=== PATIENT | female | born 1980 | race African-American/Black ===

== ENCOUNTER 2016-09-01 18:58 | Inpatient (IN) | payer OTHER ==
[~2016-09-01] VITALS: Ht 157.5 cm; Wt 61.7 kg
--- NOTE | ~2016-09-01 | HC ---
[facility] [place] [address] CONSULTATION Name: MARIE AGGARWAL Room #: 306-P [facility] IN M.R.#: [id number] Admission: 09/02/16 Attend Phys: Ryan Epperson MD Discharge: Date of : 82 Report #: [id number] THIS REPORT FOR: //name// CC: VÍCTOR physician/PCP Ryan Epperson INFECTIOUS DISEASES CONSULTATION REASON FOR CONSULTATION: I was asked to evaluate concerning sickle cell crisis and fever. HISTORY OF PRESENT ILLNESS: The patient is a 36-year-old sickle cell anemia who was hospitalized 2 weeks ago at [facility] with crisis. Was at home doing reasonably well up until the last several days, when she started having increased pain along with fever, pharyngitis symptoms and tender adenopathy in the left neck. No significant travel. No new sexual partners. She has two children but they do not live with her. She is not working. She has had anorexia. No nausea, vomiting or diarrhea. No dysuria or frequency. No cough or sputum production. Hospitalized and placed on ceftriaxone. She is on b.i.d. acyclovir longstanding, also takes Hydrea for her sickle cell. She states 3-4 flares a year. PAST MEDICAL HISTORY: Asthma, genital herpes, cholecystectomy, 2 C-sections. FAMILY HISTORY: Noncontributory. SOCIAL HISTORY: She is a smoker of cigarettes. No alcohol use. Does use marijuana, cocaine. No IV drug use. Denies HIV risks or other sexual transmitted diseases. No tuberculosis history. REVIEW OF SYSTEMS: Negative, has been described above. PHYSICAL EXAMINATION: GENERAL: She was currently afebrile, hemodynamically stable, had a significant amount of pain and was holding her left neck. She does have a Port-A-Cath in place that was unremarkable. SKIN: Unremarkable. HEENT: Eyes: Unremarkable. Mouth: Tonsils were 2+ swollen with exudates. NECK: Supple. She had tender adenopathy in the left posterior cervical chain. No axillary nodes. LUNGS: Clear. HEART: Regular. ABDOMEN: Soft and nontender. LABORATORY STUDIES: Chest x-ray was clear. CT of the head showed poor patchy area of gliosis. Lactate 1.1. Group A strep from throat was positive. [address] [address] CONSULTATION Name: MARIE AGGARWAL Room #: 306-P ADM IN M.R.#: [id number] Admission: 09/02/16 Attend Phys: Ryan Epperson MD Discharge: Date of : 82 Report #: [id number] Hemoglobin 8.4, white cell count was 33,000, platelet count 405,000. Sodium 135, potassium 4.2, bicarbonate 24, creatinine 0.6. Liver function test normal. Urinalysis negative. IMPRESSION: Group A strep pharyngitis and tonsillitis with flare per her sickle cell disease. PLAN: Recommend continuing penicillin G. Fluid resuscitation, pain medications, salt water gargle, throat culture for sensitivity testing, check EBV titer as well. <ELECTRONICALLY SIGNED> By: Bib Carlson MD 09/05/16 0742 1030 1348 Bib Carlson MD /nt
--- NOTE | ~2016-09-01 | D ---
[facility] [place] [address] DISCHARGE SUMMARY Name: JASENMARIE Giovani Room #: 306-P ADM IN M.R.#: [id number] Admission: 09/02/16 Attend Phys: Katelynn Lester MD Discharge: Date of : 82 Report #: [id number] THIS REPORT FOR: //name// CC: VÍCTOR physician/PCP Katelynn Lester DATE OF SERVICE: 09/09/2016 HISTORY OF PRESENT ILLNESS: The patient is a 36-year-old female with history of sickle cell disease, who came to the hospital with sore throat, and sickle cell crisis. Please refer to the admission H and P for details. HOSPITALIZATION COURSE: The patient was hospitalized at [facility]. She was started on appropriate treatment. The patient was found to have strep throat. She was treated with penicillin-VK, per infectious disease recommendation. The patient's condition improved significantly. For sickle cell crisis, the patient required IV fluids as well as IV pain medications. Eventually, her condition stabilized, and IV medicines were changed to the p.o. Her hemoglobin on admission was 7.1, and next day it was 6.5. After transfusion, hemoglobin remained stable at 8.6 at the discharge. Currently, the patient's condition is acceptable, as documented in the patient's chart. DISCHARGE DIAGNOSES: 1. Sickle cell crisis, presented with pain, resolved. 2. Acute on chronic anemia, status post 2 units of packed red blood cells transfusion. Stable hemoglobin at this time. 3. Strep throat. Much better on penicillin-VK. 4. Polysubstance abuse, including marijuana and cocaine. DISPOSITION: The patient is discharged home. DISCHARGE MEDICATIONS: Please refer to the medication reconciliation list. FOLLOWUP PLAN: Follow up with the fibre optic cable splicer and primary care physician in 1-2 weeks. By: [id number] Katelynn Lester MD /nt
--- NOTE | ~2016-09-01 | HC ---
[facility] [place] [address] CONSULTATION Name: MARIE AGGARWAL Room #: 306-P ADM IN M.R.#: [id number] Admission: 09/02/16 Attend Phys: Ryan Epperson MD Discharge: Date of : 82 Report #: [id number] THIS REPORT FOR: //name// CC: Bib Carlson MD [facility] physician/PCP Ryan Epperson MD [facility] REASON FOR CONSULTATION: Sickle cell anemia. HISTORY OF PRESENT ILLNESS: The patient is a 36-year-old female with a history sickle cell disease, who is usually followed by [facility]. She was noted to be having an exacerbation of her pain for the last several days and also very bad sore throat. When she came in was febrile, and is positive for strep throat, and we are being consulted. We do not have any of her old labs. She reports that she has not usually received transfusion. She has been on Hydrea for several years and also takes folic acid. She also reports being on Depo-Provera to prevent . She does have some sore throat as well, but does not have any trouble with dysphagia down below that. She is not aware of any skin lesion. Other than the left neck, she is not really aware of any adenopathy. She does not feel like she is having much more troubled breathing, other than the sore throat, no new bowel troubles. No new urine troubles. Her weight has been stable, and her two children do not live with her. She has not really been around anyone sick lately. PAST MEDICAL HISTORY: Notable for the history of sickle cell anemia. Also, history of asthma, genital herpes, times 2, cholecystectomy, also history of admitted use to marijuana and cocaine per other reporters, also tobacco in the form of cigarettes, 2-3 cigarettes a day for 16 years. SOCIAL HISTORY: She is on disability, if I understand right. FAMILY HISTORY: Both mother and father had diabetes. Father is on dialysis. She has at least 3 aunts, who are under renal dialysis. She has 5 brothers and sisters, some of them have sickle trait. No one with sickle cell anemia. Two children who do not have crisis, but I think they have trait. PHYSICAL EXAMINATION: VITAL SIGNS: Height is 5 feet 2 inches, 157.5 cm. Weight is 136 pounds or 61.7 kilograms. Blood pressure is 110/46, O2 sat 97, respirations 18, pulse 104. Current temperature 99.6, yesterday evening it was 103.1. NEUROLOGIC: Face is symmetrical. She is somewhat agitated and anxious, because of the pain. It was hard to tell, what her baseline communication status is. NECK: Does have slightly tender and enlarged lymph nodes in the right neck. LUNGS: Appear to be clear, without rhonchi, wheezes, or rales. [address] [address] CONSULTATION Name: JASENMARIE Giovani Room #: 306-P [facility] IN M.R.#: [id number] Admission: 09/02/16 Attend Phys: Ryan Epperson MD Discharge: Date of : 82 Report #: [id number] HEART: Regular rate, though slightly tachycardic. No definite murmurs. ABDOMEN: Slightly obese. No masses. Nontender. EXTREMITIES: Without clubbing, cyanosis, or may be trace edema. No skin lesions seen. LABORATORY DATA: On admission here includes sodium of 135, BUN of 5, creatinine of 0.6. AST 32, total bili elevated at 4.5. Alkaline phosphatase 61, ALT 68. Albumin 3.9, lactic acid 1.1. White count 33.4, hemoglobin 8.4, MCV 99.9, RDW 20.5, platelets 405. Differential has 84% segs, 1% bands, and 10% lymphs, 5 monos. EBV is pending. Note that, hCG for was negative, EBV test is pending. We will order retic count also. ASSESSMENT AND PLAN: 1. Sickle cell anemia. No indication for treatment. For treatment of crisis, I agree with IV fluids, oxygen, and pain meds cautiously. Please continue Hydrea as well as folic acid. Note, the patient is also on outpatient Depo-Provera. 2. Strep throat. Continue penicillin. 3. Dehydration. IV fluids. We will follow with you. <ELECTRONICALLY SIGNED> By: Shawn Acosta MD 09/05/16 0748 [id number] Shawn Acosta MD /nt
[2016-09-01 19:39] VITALS: BP 137/88
[2016-09-01 20:52] LABS: URINE BILIRUBIN NEGATIVE (Negative); URINE BLOOD TRACE (Negative); URINE COLOR YELLOW; URINE GLUCOSE-RANDOM* NEGATIVE (Negative); URINE KETONES NEGATIVE (Negative); URINE NITRITE NEGATIVE (Negative); URINE PROTEIN (DIPSTICK) NEGATIVE (Negative)
[2016-09-01] MEDS ORDERED: HYDREA 500 MG500 M1 PO (22:20)
[2016-09-01] MEDS ORDERED: OXYCONTIN10 M1 PO ×2 (22:20→22:21)
[2016-09-01] MEDS ORDERED: CYMBALTA30 MG PO (22:21)
[2016-09-01] MEDS ORDERED: NEURONTIN 300300 M1 PO (22:21)
[2016-09-01] MEDS ORDERED: ACYCLOVIR 400400 MG PO (22:22)
[2016-09-01] MEDS ORDERED: ZANTAC 150MG T150 MG PO (22:22)
[2016-09-01] MEDS ORDERED: OXYCODONE HCL10 MG PO (22:23)
[2016-09-01 23:36] LABS: HEMATOCRIT 24.6 % (37.0-47.0); HEMOGLOBIN 8.4 gm/dL (12.0-15.0); MCH 34.2 pg (26.0-34.0); MCHC 34.2 g/dL (28.0-37.0); MCV 99.9 fL (80.0-100.0); PLATELET COUNT 405 thou/uL (150-400); RBC 2.46 mil/uL (4.20-5.00); RDW 20.5 % (10.5-14.5); WBC 33.4 thou/uL (4.0-11.0)
[2016-09-01 23:41] LABS: CALCIUM 8.5 mg/dL (8.5-10.1); CREATININE 0.6 mg/dL (0.6-1.0); POTASSIUM 4.2 mmol/L (3.5-5.1)
[2016-09-01 23:42] LABS: MANUAL DIFF YES
[2016-09-01 23:50] LABS: ALBUMIN 3.9 g/dL (3.4-5.0); TOTAL BILIRUBIN 4.5 mg/dL (<0.1-1.0)
[2016-09-02 00:33] LABS: ABSOLUTE NEUTROPHILS 28.4 thou/uL (1.4-8.2); TOTAL CELL COUNT 100
[2016-09-02 00:34] LABS: ANISOCYTOSIS 4+; MACROCYTES 2+; POIKILOCYTOSIS 2+; TARGET CELLS 1+
[2016-09-02 00:35] LABS: MICROCYTES FEW; POLYCHROMASIA 1+
[2016-09-02 02:11] VITALS: BP 140/75
[2016-09-02 08:27] VITALS: BP 144/51
[2016-09-02 15:20] VITALS: BP 110/46
[2016-09-02 19:55] VITALS: BP 127/55
[2016-09-02 23:05] VITALS: BP 118/55
[2016-09-03 00:07] LABS: ANTI-EBNA >600.0 U/mL (0.0-17.9); ANTI-VCA/IgG >600.0 U/mL (0.0-17.9); EBV EARLY ANTIGEN <9.0 U/mL (0.0-8.9)
[2016-09-03 04:00] VITALS: BP 107/46
[2016-09-03 06:15] LABS: OBSERVED RETIC COUNT 6.67 % (0.6-2.6)
[2016-09-03 06:28] LABS: ALBUMIN 3.3 g/dL (3.4-5.0); CREATININE 0.5 mg/dL (0.6-1.0); MAGNESIUM 1.8 mg/dL (1.8-2.4); TOTAL BILIRUBIN 5.1 mg/dL (<0.1-1.0); TOTAL PROTEIN 7.1 g/dL (6.4-8.2)
[2016-09-03 06:40] LABS: ABSOLUTE RETIC COUNT 0.1434 10^6/uL
[2016-09-03 09:11] VITALS: BP 115/58
[2016-09-03 10:24] LABS: HEMATOCRIT 20.6 % (37.0-47.0); HEMOGLOBIN 7.1 gm/dL (12.0-15.0); MCH 34.5 pg (26.0-34.0); MCHC 34.3 g/dL (28.0-37.0); MCV 100.5 fL (80.0-100.0); PLATELET COUNT 331 thou/uL (150-400); RBC 2.05 mil/uL (4.20-5.00); RDW 18.8 % (10.5-14.5); WBC 38.1 thou/uL (4.0-11.0)
[2016-09-03 10:25] LABS: MANUAL DIFF YES
[2016-09-03 10:56] LABS: CREATININE 0.5 mg/dL (0.6-1.0); POTASSIUM 4.2 mmol/L (3.5-5.1)
[2016-09-03 11:10] LABS: ABSOLUTE NEUTROPHILS 34.7 thou/uL (1.4-8.2); TOTAL CELL COUNT 100
[2016-09-03 11:11] LABS: ANISOCYTOSIS 2+; OVALOCYTES 1+; POLYCHROMASIA SLIGHT
[2016-09-03 17:47] VITALS: BP 116/61
[2016-09-03 19:50] VITALS: BP 109/53
[2016-09-04 04:10] VITALS: BP 134/82
[2016-09-04 05:59] LABS: MCH 34.2 pg (26.0-34.0); MCHC 34.5 g/dL (28.0-37.0); MCV 99.3 fL (80.0-100.0); RBC 1.91 mil/uL (4.20-5.00); RDW 19.2 % (10.5-14.5)
[2016-09-04 06:24] LABS: HEMOGLOBIN 6.5 gm/dL (12.0-15.0); WBC 19.9 thou/uL (4.0-11.0)
[2016-09-04 09:48] VITALS: BP 114/49
[2016-09-04 13:45] VITALS: BP 120/65; BP 121/69
[2016-09-04 16:09] VITALS: BP 127/65
[2016-09-04 19:48] VITALS: BP 128/70
[2016-09-05 03:04] VITALS: BP 110/75
[2016-09-05 06:25] LABS: HEMATOCRIT 22.1 % (37.0-47.0); HEMOGLOBIN 7.7 gm/dL (12.0-15.0); MCH 33.5 pg (26.0-34.0); MCHC 35.1 g/dL (28.0-37.0); MCV 95.5 fL (80.0-100.0); RBC 2.31 mil/uL (4.20-5.00); RDW 19.3 % (10.5-14.5); WBC 10.8 thou/uL (4.0-11.0)
[2016-09-05 09:33] VITALS: BP 119/66
[2016-09-05 15:10] LABS: ANTI-VCA/IgM <36.0 U/mL (0.0-35.9)
[2016-09-05 19:21] VITALS: BP 127/69
[2016-09-06 03:44] VITALS: BP 131/84
[2016-09-06 08:10] VITALS: BP 117/67
[2016-09-06 17:14] VITALS: BP 126/81
[2016-09-06 20:00] VITALS: BP 125/75
[2016-09-07 03:11] VITALS: BP 116/78
[2016-09-07 06:17] LABS: HEMATOCRIT 24.1 % (37.0-47.0); HEMOGLOBIN 8.3 gm/dL (12.0-15.0); MCH 33.5 pg (26.0-34.0); MCHC 34.4 g/dL (28.0-37.0); MCV 97.1 fL (80.0-100.0); RBC 2.48 mil/uL (4.20-5.00); RDW 18.9 % (10.5-14.5)
[2016-09-07 08:27] VITALS: BP 123/71
[2016-09-07 16:16] VITALS: BP 120/67
[2016-09-07 20:46] VITALS: BP 120/61
[2016-09-08 04:11] VITALS: BP 108/42
[2016-09-08 05:10] LABS: HEMATOCRIT 23.6 % (37.0-47.0); HEMOGLOBIN 8.3 gm/dL (12.0-15.0); MCH 33.4 pg (26.0-34.0); MCV 95.5 fL (80.0-100.0); RBC 2.47 mil/uL (4.20-5.00); RDW 19.6 % (10.5-14.5)
[2016-09-08 08:52] VITALS: BP 123/87
[2016-09-08 16:57] VITALS: BP 125/68
[2016-09-08 20:00] VITALS: BP 116/82
[2016-09-09 04:00] VITALS: BP 118/75
[2016-09-09 05:49] LABS: HEMATOCRIT 24.5 % (37.0-47.0); HEMOGLOBIN 8.6 gm/dL (12.0-15.0); MCHC 35.2 g/dL (28.0-37.0); MCV 96.5 fL (80.0-100.0); RBC 2.54 mil/uL (4.20-5.00); RDW 19.7 % (10.5-14.5); WBC 8.2 thou/uL (4.0-11.0)
[2016-09-09 09:00] VITALS: BP 111/66
[2016-09-09 11:30] VITALS: BP 146/60
[2016-09-09] MEDS ORDERED: OXYCONTIN10 M1 PO ×2 (13:02)
[2016-09-09] MEDS ORDERED: VEETIDS 250MG250 M1 PO (13:05)
[2016-09-09] MEDS ORDERED: OXYCODONE HCL10 MG PO (13:05)
[2016-09-09 13:33] VITALS: BP 146/60
[2016-09-09 15:19] VITALS: BP 146/60
== END 2016-09-09 14:55 | disposition home or self-care (01) | DRG 871 ==
LOC: ER 18:58 → 3N 09-02 01:24 → EROBS 09-02 01:24 → 3N 09-02 02:08
PROVIDERS: Emergency Medicine; Family Medicine; Internal Medicine Hematology & Oncology; Nurse Practitioner; Specialist
PROC: 30233N1 Transfusion of Nonautologous Red Blood Cells into Peripheral Vein, Percutaneous Approach (ICD-10-PCS; principal; 2016-09-04)
DX: A41.9 Sepsis, unspecified organism (principal); D57.00 Hb-SS disease with crisis, unspecified; J02.0 Streptococcal pharyngitis; J45.909 Unspecified asthma, uncomplicated; A60.00 Herpesviral infection of urogenital system, unspecified; F17.210 Nicotine dependence, cigarettes, uncomplicated; E66.9 Obesity, unspecified; E86.0 Dehydration; F12.10 Cannabis abuse, uncomplicated; F14.10 Cocaine abuse, uncomplicated; Z68.24 Body mass index [BMI] 24.0-24.9, adult; Z90.49 Acquired absence of other specified parts of digestive tract; Z80.8 Family history of malignant neoplasm of other organs or systems; Z82.5 Family history of asthma and other chronic lower respiratory diseases; Z82.3 Family history of stroke; Z82.49 Family history of ischemic heart disease and other diseases of the circulatory system; Z83.2 Family history of diseases of the blood and blood-forming organs and certain disorders involving the immune mechanism; Z83.3 Family history of diabetes mellitus
CPT/HCPCS: 10096; 23012

== ENCOUNTER 2016-11-14 23:28 | Inpatient (IN) | payer OTHER ==
[~2016-11-14] VITALS: Ht 157.5 cm; Wt 61.7 kg
[~2016-11-14 23:28] MED LIST: ACYCLOVIR 400400 MG PO; CYMBALTA30 MG PO; HYDREA 500 MG500 M1 PO; NEURONTIN 300300 M1 PO; OXYCODONE HCL10 MG PO; OXYCONTIN10 M1 PO; VEETIDS 250MG250 M1 PO; ZANTAC 150MG T150 MG PO
[2016-11-14 23:30] VITALS: BP 126/69
[2016-11-14] MEDS ORDERED: OXYCODONE HCL15 MG PO (23:35)
[2016-11-14] MEDS ORDERED: OXYCONTIN15 MG PO (23:59)
[2016-11-15 04:23] LABS: URINE BILIRUBIN NEGATIVE (Negative); URINE BLOOD TRACE (Negative); URINE COLOR YELLOW; URINE GLUCOSE-RANDOM* NEGATIVE (Negative); URINE KETONES NEGATIVE (Negative); URINE LEUKOCYTES-REFLEX 1+ (Negative); URINE PROTEIN (DIPSTICK) NEGATIVE (Negative); URINE SPECIFIC GRAVITY 1.015 (1.003-1.035)
[2016-11-15 04:31] LABS: AMORPHOUS URATES Moderate /LPF (None Seen); CASTS None Seen /LPF (None Seen); SQUAMOUS >10 Many /LPF (0-3); URINE RBC 0-2 Rare /HPF (0-2); URINE WBC-REFLEX 0-5 Rare /HPF (0-5)
[2016-11-15 04:32] LABS: CRYSTALS None Seen /LPF (None Seen)
[2016-11-15 04:47] LABS: ABSOLUTE RETIC COUNT 0.1925 10^6/uL; HEMATOCRIT 23.3 % (37.0-47.0); HEMOGLOBIN 8.1 gm/dL (12.0-15.0); MCH 32.9 pg (26.0-34.0); MCHC 34.9 g/dL (28.0-37.0); MCV 94.4 fL (80.0-100.0); PLATELET COUNT 379 thou/uL (150-400); RBC 2.47 mil/uL (4.20-5.00); RDW 20.5 % (10.5-14.5); WBC 11.4 thou/uL (4.0-11.0)
[2016-11-15 04:52] LABS: CALCIUM 8.1 mg/dL (8.5-10.1); CREATININE 0.5 mg/dL (0.6-1.0); POTASSIUM 3.7 mmol/L (3.5-5.1)
[2016-11-15 04:58] LABS: ALBUMIN 3.5 g/dL (3.4-5.0); TOTAL BILIRUBIN 3.6 mg/dL (<0.1-1.0); TOTAL PROTEIN 7.7 g/dL (6.4-8.2)
[2016-11-15 05:02] LABS: MANUAL DIFF YES
[2016-11-15 05:04] VITALS: BP 141/68
[2016-11-15 05:44] LABS: TOTAL CELL COUNT 100; TOXIC GRANULATION 1+
[2016-11-15 05:51] LABS: ABSOLUTE NEUTROPHILS 5.6 thou/uL (1.4-8.2)
[2016-11-15 08:07] VITALS: BP 141/57
[2016-11-15 16:00] VITALS: BP 114/48
[2016-11-15 20:00] VITALS: BP 106/66
[2016-11-16 04:38] VITALS: BP 125/82
[2016-11-16 07:42] VITALS: BP 127/77
[2016-11-16 16:00] VITALS: BP 99/76
[2016-11-16 17:12] VITALS: BP 99/76
[2016-11-16 19:51] VITALS: BP 104/51
[2016-11-17 03:27] VITALS: BP 125/78
[2016-11-17 09:35] VITALS: BP 125/82
[2016-11-17 17:01] VITALS: BP 117/69
[2016-11-17 20:00] VITALS: BP 136/79
[2016-11-18 04:00] VITALS: BP 147/94
[2016-11-18 08:14] VITALS: BP 131/86
[2016-11-18] MEDS ORDERED: PERCOCET PO ×2 (13:18→13:54)
[2016-11-18] MEDS ORDERED: OXYCONTIN15 MG PO ×2 (13:18→13:54)
[2016-11-18 19:29] VITALS: BP 131/86
== END 2016-11-18 20:00 | disposition home or self-care (01) | DRG 812 ==
LOC: ER 23:28 → EROBS 11-15 04:16 → 4E 11-15 04:16
PROVIDERS: Emergency Medicine
DX: D57.00 Hb-SS disease with crisis, unspecified (principal); D64.9 Anemia, unspecified; J45.909 Unspecified asthma, uncomplicated; F17.210 Nicotine dependence, cigarettes, uncomplicated; K59.00 Constipation, unspecified; G89.29 Other chronic pain; F14.10 Cocaine abuse, uncomplicated; A60.00 Herpesviral infection of urogenital system, unspecified; F12.10 Cannabis abuse, uncomplicated; Z82.49 Family history of ischemic heart disease and other diseases of the circulatory system; Z83.3 Family history of diabetes mellitus; Z82.5 Family history of asthma and other chronic lower respiratory diseases; Z82.3 Family history of stroke; Z84.89 Family history of other specified conditions; Z90.49 Acquired absence of other specified parts of digestive tract; Z79.891 Long term (current) use of opiate analgesic
CPT/HCPCS: 10084

== ENCOUNTER 2016-11-19 04:14 | Inpatient (IN) | payer OTHER ==
[~2016-11-19] VITALS: Ht 157.5 cm; Wt 72.6 kg
--- NOTE | ~2016-11-19 | EKG ---
[place] [address] [facility] [place] [address] ELECTROCARDIOGRAM REPORT Name: RIMA AGGARWALROBERT Matute Room #: 438-P ADM IN M.R.#: [id number] Admission: 11/19/16 Attend Phys: David Hill DO Discharge: Date of : 82 Report #: [id number] THIS REPORT FOR: //name// [facility] ED Test Date: 2016-11-19 Test Time: 04:36:28 Pat Name: MARIE AGGARWAL Department: Room: [facility] Gender: F Medical Educator: DEEPAK : 1980 Requested By: Alise Carrasco Order Number: [id number] MD: Zaki Ellis Measurements Intervals [place] Rate: 72 P: 74 LA: 166 QRS: 55 QRSD: 89 T: 52 QT: 407 QTc: 446 Interpretive Statements Sinus rhythm No significant abnormality No previous ECG available for comparison Electronically Signed On 11-21-2016 8:35:04 CDT by Zaki Ellis [email or web address] <ELECTRONICALLY SIGNED> By: Zaki Ellis MD, [facility] 11/21/16 0835 0436 0436 Zaki Ellis MD, FACC /EPI
--- NOTE | ~2016-11-19 | HC ---
[facility] [address] [address] CONSULTATION Name: MARIE AGGARWAL Room #: 438-P ADM IN M.R.#: [id number] Admission: 11/19/16 Attend Phys: David Hill DO Discharge: Date of : 82 Report #: [id number] THIS REPORT FOR: //name// CC: [facility] Zeinab Joy MD DATE OF SERVICE: 11/20/2016 REQUESTING PHYSICIAN: Francisco Anderson DO REASON FOR CONSULTATION: Sickle cell anemia and pain. HISTORY OF PRESENT ILLNESS: The patient is a 36-year-old female who had recently just been admitted after running out of her medications, ____ for pain. She was brought in last and according to the ER ____ family members with increasing pain and decreased mentation. According to the note, she was given Narcan with improvement but did have a low grade fever last night, note that the urine appears to show some increased bacteria. Today, on Monday morning, she is a bit more alert and able to answer questions. No headache, no shortness of air, did have some abdominal pain, did have a loose bowel movements. No one else at home had been sick. No cough, no new skin rash, no new arm or leg swelling, does have a little bit of dysuria. No sore teeth. No sore gums. No new heat or cold intolerance. PAST MEDICAL HISTORY: Notable for history of sickle cell anemia, also history of asthma, genital herpes, C section times 2, cholecystectomy, history of marijuana use and also cocaine use in the past, tobacco use to 2-3 cigarettes a day for about 16 years. SOCIAL HISTORY: On disability. FAMILY HISTORY: Both mother and father had diabetes. Father had been on dialysis. She has at least 3 aunts who have been on renal dialysis. She has 5 brothers and sisters, some of them have sickle trait. No one else has sickle cell anemia. She has two children, who do not have sickle cell disease, but she tells me she thinks they are the trait. PHYSICAL EXAMINATION: GENERAL: The patient appears her stated age. VITAL SIGNS: Height is 5 feet 2 which is 157.5 cm. Weight is 160 pounds which I would question whether it is accurate as she weighed close to 136 recently, so that weight will have to be checked to see which is accurate. Vital signs include a blood pressure of 118/71, O2 sat at 91, respirations 16, temperature [facility] [address] [place] [address] CONSULTATION Name: MARIE AGGARWAL Room #: 438-P [facility].#: [id number] Admission: 11/19/16 Attend Phys: David Hill DO Discharge: Date of : 82 Report #: [id number] 98.9, note that it was 100 yesterday. LUNGS: Clear. HEART: Regular rate. Heart does have a slight murmur, does have a power port or does have an IV port and I believe her left chest. No enlarged lymph nodes in the supraclavicular, cervical, axillary or inguinal region. ABDOMEN: Not obese, but not flat, does have some minimal tenderness not too significant to my exam. EXTREMITIES: Without clubbing or cyanosis. LABORATORY DATA: Shows that her bilirubin which normally in the past had been 3.6, 5.1 with 8.9 yesterday. I have asked for that to be redrawn. Transaminases which last admit several days was 43, was 91. Alkaline phosphatase which had been 65 is 75, AST which had been 17 is 47. Albumin was slightly low at 3.4. LDH last admit was 708 today is pending. Drug screen was positive for marijuana yesterday. White count 15.8 today. Note that last admit had been 11.4, hemoglobin recently had been 8.17, note that back in August had been in the 6.5 up to 8.3 range. MCV has been the same 88 to 100 range, platelets stable 288, differential, no acute forms. Note there were 2 atypical lymphocytes this time, absolute reticulocyte count this time is 0.272, note that in the past had been 0.14 and 0.19. HCG qualitative negative, note that her urine dipstick did show 0-3 squamous cells and 10-30 bacteria. MEDICATIONS: At this time currently include Lovenox 40 and IV fluids. Medications on discharge last time had included oxycodone 10 mg q.6 hours p.r.n. and she also had OxyContin 15 q.12 hours, also had hydroxyurea 2000 mg daily, this could be restarted when she feels better, had also been on Neurontin 300 mg t.i.d., Cymbalta 30 mg twice daily, acyclovir 400 mg daily, ranitidine 150 twice daily which she should probably restart, also should be on folic acid. ASSESSMENT AND PLAN: 1. Sickle cell disease. The patient describes some increase in pain. Should use same opiates as she had before judiciously given her liver function abnormalities. Continue IV fluids and oxygen if needed. Restart hydroxyurea as an outpatient. We will restart folic acid. 2. Anemia. Continue monitoring. 3. Continue to use opiates cautiously given elevated bilirubin. Will also consider adding Neurontin back in. 4. Low-grade fever and dysuria and white bacteria on urine. We will defer to admitting doctor but probably should consider antibiotics. We will defer to their clinical judgment. 5. History of genital herpes likely should restart acyclovir. [facility] [address] [place] [address] CONSULTATION Name: MARIE AGGARWAL Room #: 438-P ADM IN M.R.#: [id number] Admission: 11/19/16 Attend Phys: David Hill DO Discharge: Date of : 82 Report #: [id number] 6. Mood and help with pain, probably restart Duloxetine and gabapentin. We will follow with you. <ELECTRONICALLY SIGNED> By: Shawn Acosta MD 11/21/16 0703 0824 1857 Shawn Acosta MD /nt
[~2016-11-19 04:14] MED LIST changes: +OXYCODONE HCL15 MG PO; +OXYCONTIN15 MG PO; +PERCOCET PO
[2016-11-19 04:16] VITALS: BP 138/81
[2016-11-19 04:47] LABS: WBC 12.9 thou/uL (4.0-11.0)
[2016-11-19 04:51] LABS: MCH 33.4 pg (26.0-34.0); MCHC 37.9 g/dL (28.0-37.0); PLATELET COUNT 340 thou/uL (150-400); RDW 24.2 % (10.5-14.5)
[2016-11-19 04:54] LABS: HEMATOCRIT 18.5 % (37.0-47.0); MANUAL DIFF YES
[2016-11-19 04:58] LABS: CALCIUM 8.6 mg/dL (8.5-10.1); CREATININE 0.5 mg/dL (0.6-1.0); POTASSIUM 3.5 mmol/L (3.5-5.1)
[2016-11-19 05:18] LABS: ABSOLUTE NEUTROPHILS 7.5 thou/uL (1.4-8.2); ATYPICAL LYMPHS 2 %; NUCLEATED RBCS 14 /100WBC; TOTAL CELL COUNT 100
[2016-11-19 05:19] LABS: ANISOCYTOSIS 3+; LARGE PLATELETS SEVERAL
[2016-11-19 05:20] LABS: POLYCHROMASIA 3+
[2016-11-19 05:21] LABS: MACROCYTES 2+; MICROCYTES 1+
[2016-11-19 06:16] LABS: ALBUMIN 3.4 g/dL (3.4-5.0); ALKALINE PHOSPHATASE 75 U/L (46-116); DIRECT BILIRUBIN 0.6 mg/dL (<0.1-0.3); SGOT 91 U/L (15-37); SGPT 47 U/L (30-65); TOTAL BILIRUBIN 8.9 mg/dL (<0.1-1.0); TOTAL PROTEIN 7.4 g/dL (6.4-8.2)
[2016-11-19 06:25] VITALS: BP 135/73
[2016-11-19 06:29] LABS: ACETAMINOPHEN < 2 ug/mL (10-30)
[2016-11-19 06:40] VITALS: BP 121/56
[2016-11-19 08:47] VITALS: BP 127/58
[2016-11-19 15:54] VITALS: BP 108/52
[2016-11-19 18:03] LABS: URINE BLOOD 2+ (Negative); URINE COLOR YELLOW; URINE GLUCOSE-RANDOM* NEGATIVE (Negative); URINE KETONES 2+ (Negative); URINE NITRITE NEGATIVE (Negative); URINE PROTEIN (DIPSTICK) 2+ (Negative)
[2016-11-19 18:08] LABS: URINE BILIRUBIN NEGATIVE (Negative)
[2016-11-19 18:12] LABS: AMP/METHAMP Negative (Negative); BARBITURATES Negative (Negative); BENZODIAZEPINES Negative (Negative); COCAINE Negative (Negative); METHADONE Negative (Negative); OPIATES Negative (Negative); PCP Negative (Negative); THC Negative (Negative)
[2016-11-19 18:17] LABS: CASTS None Seen /LPF (None Seen); SQUAMOUS 0-3 Few /LPF (0-3); URINE RBC 3-10 Few /HPF (0-2); URINE WBC 0-5 Rare /HPF (0-5)
[2016-11-19 18:18] LABS: CRYSTALS None Seen /LPF (None Seen)
[2016-11-19 19:22] VITALS: BP 129/71
[2016-11-20 05:03] LABS: EOSINOPHILS 0.5 % (0.0-3.0); RBC 2.08 mil/uL (4.20-5.00)
[2016-11-20 05:07] LABS: ABSOLUTE NEUTROPHILS 9.4 thou/uL (1.4-8.2); BASOPHILS 0.9 % (0.0-2.0); LYMPHOCYTES 20.4 % (24.0-44.0); MCH 33.4 pg (26.0-34.0); MCHC 36.1 g/dL (28.0-37.0); MCV 92.5 fL (80.0-100.0); MONOCYTES 10.1 % (1.0-8.0); PLATELET COUNT 288 thou/uL (150-400); POLYS 68.1 % (36.0-66.0); RDW 25.5 % (10.5-14.5); WBC 15.8 thou/uL (4.0-11.0)
[2016-11-20 05:08] LABS: MANUAL DIFF NO
[2016-11-20 05:10] LABS: HEMATOCRIT 19.3 % (37.0-47.0)
[2016-11-20 05:33] LABS: CALCIUM 8.3 mg/dL (8.5-10.1); CREATININE 0.6 mg/dL (0.6-1.0); POTASSIUM 3.4 mmol/L (3.5-5.1)
[2016-11-20 05:53] VITALS: BP 118/71
[2016-11-20 06:50] LABS: ANISOCYTOSIS 3+; MICROCYTES 1+; PLATELET ESTIMATE NORMAL; POLYCHROMASIA 1+
[2016-11-20 08:00] VITALS: BP 131/67
[2016-11-20 08:12] LABS: ABSOLUTE RETIC COUNT 0.2725 10^6/uL; OBSERVED RETIC COUNT 12.73 % (0.6-2.6)
[2016-11-20 08:21] LABS: ALBUMIN 3.4 g/dL (3.4-5.0); DIRECT BILIRUBIN 0.3 mg/dL (<0.1-0.3); TOTAL BILIRUBIN 4.5 mg/dL (<0.1-1.0); TOTAL PROTEIN 7.3 g/dL (6.4-8.2)
[2016-11-20 16:35] VITALS: BP 115/60
[2016-11-20 21:09] VITALS: BP 135/69
[2016-11-21 03:46] VITALS: BP 121/61
[2016-11-21 04:50] LABS: HEMOGLOBIN 7.4 gm/dL (12.0-15.0); MCH 34.6 pg (26.0-34.0); MCV 93.5 fL (80.0-100.0); PLATELET COUNT 296 thou/uL (150-400); RBC 2.14 mil/uL (4.20-5.00); RDW 27.9 % (10.5-14.5); WBC 13.9 thou/uL (4.0-11.0)
[2016-11-21 04:54] LABS: MANUAL DIFF YES
[2016-11-21 05:40] LABS: ALBUMIN 3.2 g/dL (3.4-5.0); CALCIUM 8.2 mg/dL (8.5-10.1); CREATININE 0.5 mg/dL (0.6-1.0); POTASSIUM 3.7 mmol/L (3.5-5.1); TOTAL BILIRUBIN 3.9 mg/dL (<0.1-1.0); TOTAL PROTEIN 7.1 g/dL (6.4-8.2)
[2016-11-21 07:28] LABS: ABSOLUTE NEUTROPHILS 4.3 thou/uL (1.4-8.2); METAMYELOCYTES 1 %; NUCLEATED RBCS 37 /100WBC; TOTAL CELL COUNT 100
[2016-11-21 07:29] LABS: ANISOCYTOSIS 3+; POLYCHROMASIA 2+
[2016-11-21 07:30] LABS: TARGET CELLS FEW
[2016-11-21 08:00] VITALS: BP 118/69
[2016-11-21] MEDS ORDERED: CIPRO500 MG PO (08:53)
[2016-11-21] MEDS ORDERED: OXYCONTIN15 MG PO (08:53)
[2016-11-21] MEDS ORDERED: HYDREA 500 MG500 M1 PO (08:53)
[2016-11-21 10:29] VITALS: BP 118/69
[2016-11-21 13:39] VITALS: BP 118/69
== END 2016-11-21 13:40 | disposition home or self-care (01) | DRG 811 ==
LOC: ER 04:14 → EROBS 05:37 → 4S 05:37
PROVIDERS: Emergency Medicine; Internal Medicine Geriatric Medicine; Internal Medicine Hematology & Oncology
DX: D57.00 Hb-SS disease with crisis, unspecified (principal); G93.41 Metabolic encephalopathy; N39.0 Urinary tract infection, site not specified; R17 Unspecified jaundice; F19.10 Other psychoactive substance abuse, uncomplicated; R19.7 Diarrhea, unspecified; J45.909 Unspecified asthma, uncomplicated; F17.210 Nicotine dependence, cigarettes, uncomplicated; Z80.9 Family history of malignant neoplasm, unspecified; Z82.49 Family history of ischemic heart disease and other diseases of the circulatory system; Z83.3 Family history of diabetes mellitus; Z71.6 Tobacco abuse counseling; Z82.3 Family history of stroke; Z82.5 Family history of asthma and other chronic lower respiratory diseases; Z79.891 Long term (current) use of opiate analgesic
CPT/HCPCS: 10100

== ENCOUNTER 2017-08-08 22:52 | Emergency (ER) | payer OTHER ==
[~2017-08-08] VITALS: Ht 157.5 cm; Wt 70.8 kg
--- NOTE | ~2017-08-08 | EKG ---
[facility] [place] [address] ELECTROCARDIOGRAM REPORT Name: JASENMARIE R [id number] Admission: 08/08/17 Attend Phys: Discharge: 08/09/17 Date of : 82 Report #: [id number] THIS REPORT FOR: //name// [facility] ED Test Date: 2017-08-08 Test Time: 23:37:48 Pat Name: MARIE AGGARWAL Department: Room: Gender: F Knowledge Manager: LIDA MILLIGAN : 1980 Requested By: Bib Harris Order Number: [id number] MD: Zaki Ellis Measurements Intervals [place] Rate: 71 P: 33 [place]: 178 QRS: 46 QRSD: 78 T: 30 QT: 394 QTc: 429 Interpretive Statements Sinus rhythm RSR' in V1 or V2, probably normal variant Compared to ECG 11/19/2016 04:36:28 No significant change was found Electronically Signed On 08-09-2017 7:58:49 CDT by Zaki Ellis [email or web address] <ELECTRONICALLY SIGNED> By: Zaki Ellis MD, [facility] 08/09/17 0758 D: [id number] Zaki Ellis MD, FACC /EPI
[~2017-08-08 22:52] MED LIST changes: +CIPRO500 MG PO
[2017-08-08] MEDS ORDERED: VITAMIN D1000 UNI1 PO (22:54)
[2017-08-08] MEDS ORDERED: BENADRYL25 MG PO (23:00)
[2017-08-08] MEDS ORDERED: FOLIC ACID1 MG PO (23:00)
[2017-08-08 23:26] LABS: BASOPHILS 0.8 % (0.0-2.0); EOSINOPHILS 0.8 % (0.0-3.0); HEMATOCRIT 22.8 % (37.0-47.0); HEMOGLOBIN 8.4 gm/dL (12.0-15.0); LYMPHOCYTES 36.3 % (24.0-44.0); MCH 34.7 pg (26.0-34.0); MCHC 36.8 g/dL (28.0-37.0); MCV 94.5 fL (80.0-100.0); PLATELET COUNT 293 thou/uL (150-400); POLYS 55.1 % (36.0-66.0); RBC 2.41 mil/uL (4.20-5.00); RDW 20.4 % (10.5-14.5)
[2017-08-08 23:31] LABS: ABSOLUTE RETIC COUNT 0.1397 10^6/uL; OBSERVED RETIC COUNT 5.75 % (0.6-2.6)
[2017-08-08 23:34] LABS: ANION GAP 11 mmol/L (7-16); BUN 8 mg/dL (7-18); CALCIUM 8.5 mg/dL (8.5-10.1); CHLORIDE 106 mmol/L (98-107); CO2 23 mmol/L (21-32); CREATININE 0.6 mg/dL (0.6-1.0); GLUCOSE 114 mg/dL (74-106); POTASSIUM 3.8 mmol/L (3.5-5.1); SODIUM 140 mmol/L (136-145)
[2017-08-08 23:35] LABS: URINE BILIRUBIN NEGATIVE (Negative); URINE BLOOD TRACE (Negative); URINE CLARITY CLEAR; URINE COLOR YELLOW; URINE GLUCOSE-RANDOM* NEGATIVE (Negative); URINE KETONES NEGATIVE (Negative); URINE LEUKOCYTES-REFLEX NEGATIVE (Negative); URINE NITRITE-REFLEX NEGATIVE (Negative); URINE PROTEIN (DIPSTICK) NEGATIVE (Negative); URINE SPECIFIC GRAVITY <= 1.005 (1.005-1.035)
[2017-08-08 23:43] LABS: ALBUMIN 3.6 g/dL (3.4-5.0); SGOT 58 U/L (15-37); SGPT 48 U/L (30-65); TOTAL BILIRUBIN 3.4 mg/dL (<0.1-1.0); TOTAL PROTEIN 7.3 g/dL (6.4-8.2); TROPONIN-I < 0.04 ng/mL (<0.06)
[2017-08-08 23:50] LABS: AMP/METHAMP Negative (Negative); BARBITURATES Negative (Negative); BENZODIAZEPINES Negative (Negative); COCAINE Negative (Negative); METHADONE Negative (Negative); OPIATES Negative (Negative); PCP Negative (Negative)
[2017-08-09] MEDS ORDERED: PERCOCET PO (00:38)
== END 2017-08-09 01:11 | disposition home or self-care (01) ==
LOC: ER 22:52
PROVIDERS: Emergency Medicine
DX: D57.00 Hb-SS disease with crisis, unspecified (principal); F14.10 Cocaine abuse, uncomplicated; J45.909 Unspecified asthma, uncomplicated; F17.210 Nicotine dependence, cigarettes, uncomplicated

== ENCOUNTER 2017-11-18 16:41 | Emergency (ER) | payer OTHER ==
[~2017-11-18] VITALS: Ht 157.5 cm; Wt 70.8 kg
[~2017-11-18 16:41] MED LIST changes: +BENADRYL25 MG PO; +FOLIC ACID1 MG PO; +VITAMIN D1000 UNI1 PO
[2017-11-18] MEDS ORDERED: MORPHINE S10 MG/5 M2 PO (17:54)
[2017-11-18 18:23] LABS: HEMATOCRIT 21.6 % (37.0-47.0); HEMOGLOBIN 7.8 gm/dL (12.0-15.0); MCH 34.7 pg (26.0-34.0); MCHC 36.3 g/dL (28.0-37.0); MCV 95.7 fL (80.0-100.0); OBSERVED RETIC COUNT 6.15 % (0.6-2.6); PLATELET COUNT 533 thou/uL (150-400); RBC 2.26 mil/uL (4.20-5.00); RDW 21.3 % (10.5-14.5); WBC 7.9 thou/uL (4.0-11.0)
[2017-11-18 18:28] LABS: CALCIUM 8.6 mg/dL (8.5-10.1); CREATININE 0.5 mg/dL (0.6-1.0); POTASSIUM 4.4 mmol/L (3.5-5.1)
[2017-11-18 18:33] LABS: ALBUMIN 3.8 g/dL (3.4-5.0); TOTAL BILIRUBIN 2.4 mg/dL (<0.1-1.0); TOTAL PROTEIN 7.9 g/dL (6.4-8.2)
[2017-11-18 18:51] LABS: ABSOLUTE NEUTROPHILS 3.8 thou/uL (1.4-8.2); NUCLEATED RBCS 1 /100WBC
[2017-11-18 18:52] LABS: ANISOCYTOSIS 2+
[2017-11-18 18:56] LABS: POLYCHROMASIA SLIGHT; TARGET CELLS FEW
[2017-11-18 19:00] LABS: URINE BILIRUBIN NEGATIVE (Negative); URINE BLOOD TRACE (Negative); URINE CLARITY CLEAR; URINE COLOR YELLOW; URINE GLUCOSE-RANDOM* NEGATIVE (Negative); URINE KETONES NEGATIVE (Negative); URINE LEUKOCYTES-REFLEX NEGATIVE (Negative); URINE NITRITE-REFLEX NEGATIVE (Negative); URINE PROTEIN (DIPSTICK) NEGATIVE (Negative); URINE SPECIFIC GRAVITY <= 1.005 (1.005-1.035); URINE UROBILINOGEN 0.2 E.U./dl (0.2-1.0)
[2017-11-18 19:13] LABS: AMP/METHAMP Negative (Negative); BARBITURATES Negative (Negative); BENZODIAZEPINES Negative (Negative); COCAINE Negative (Negative); METHADONE Negative (Negative); OPIATES POSITIVE (Negative); PCP Negative (Negative)
== END 2017-11-18 20:55 | disposition home or self-care (01) ==
LOC: ER 16:41
PROVIDERS: Emergency Medicine
DX: D57.00 Hb-SS disease with crisis, unspecified (principal); F17.210 Nicotine dependence, cigarettes, uncomplicated; J45.909 Unspecified asthma, uncomplicated; Z90.49 Acquired absence of other specified parts of digestive tract; Z98.890 Other specified postprocedural states

== ENCOUNTER 2018-02-20 23:22 | Inpatient (IN) | payer OTHER ==
[~2018-02-20] VITALS: Ht 157.5 cm; Wt 61.7 kg
[~2018-02-20 23:22] MED LIST changes: +MORPHINE S10 MG/5 M2 PO
[2018-02-20 23:25] VITALS: BP 123/45
[2018-02-21] LABS: URINE BILIRUBIN NEGATIVE (Negative); URINE BLOOD TRACE (Negative); URINE CLARITY SL CLOUDY; URINE COLOR YELLOW; URINE GLUCOSE-RANDOM* NEGATIVE (Negative); URINE KETONES NEGATIVE (Negative); URINE LEUKOCYTES-REFLEX NEGATIVE (Negative); URINE NITRITE-REFLEX NEGATIVE (Negative); URINE PROTEIN (DIPSTICK) NEGATIVE (Negative)
[2018-02-21 00:09] LABS: AMP/METHAMP Negative (Negative); BARBITURATES Negative (Negative); BENZODIAZEPINES Negative (Negative); COCAINE Negative (Negative); METHADONE Negative (Negative); OPIATES POSITIVE (Negative); PCP Negative (Negative)
[2018-02-21 00:16] LABS: HEMATOCRIT 26.1 % (37.0-47.0); HEMOGLOBIN 9.3 gm/dL (12.0-15.0); MCH 37.5 pg (26.0-34.0); MCHC 35.6 g/dL (28.0-37.0); MCV 105.5 fL (80.0-100.0); RBC 2.47 mil/uL (4.20-5.00); RDW 18.3 % (10.5-14.5); WBC 8.2 thou/uL (4.0-11.0)
[2018-02-21 00:19] LABS: ABSOLUTE RETIC COUNT 0.0497 10^6/uL; OBSERVED RETIC COUNT 1.97 % (0.6-2.6)
[2018-02-21 00:22] LABS: CALCIUM 8.5 mg/dL (8.5-10.1); CREATININE 0.5 mg/dL (0.6-1.0); POTASSIUM 3.6 mmol/L (3.5-5.1)
[2018-02-21 00:28] LABS: ALBUMIN 3.9 g/dL (3.4-5.0); TOTAL BILIRUBIN 2.8 mg/dL (<0.1-1.0); TOTAL PROTEIN 8.3 g/dL (6.4-8.2)
[2018-02-21 02:45] VITALS: BP 124/88
[2018-02-21 03:03] VITALS: BP 121/87
[2018-02-21 04:13] VITALS: BP 137/79
[2018-02-21 08:27] VITALS: BP 136/49
[2018-02-21] MEDS ORDERED: OXYCODONE HCL10 MG PO (09:52)
[2018-02-21 16:44] VITALS: BP 136/49
== END 2018-02-21 17:42 | disposition home or self-care (01) | DRG 812 ==
LOC: ER 23:22 → 4E 02-21 02:35 → EROBS 02-21 02:35 → 4E 02-21 03:05
PROVIDERS: Emergency Medicine
DX: D57.00 Hb-SS disease with crisis, unspecified (principal); F11.23 Opioid dependence with withdrawal; J45.909 Unspecified asthma, uncomplicated; F17.210 Nicotine dependence, cigarettes, uncomplicated; Z98.891 History of uterine scar from previous surgery; Z90.49 Acquired absence of other specified parts of digestive tract; Z82.3 Family history of stroke; Z79.899 Other long term (current) drug therapy; Z82.49 Family history of ischemic heart disease and other diseases of the circulatory system; Z83.3 Family history of diabetes mellitus; Z82.5 Family history of asthma and other chronic lower respiratory diseases
CPT/HCPCS: 10084

== ENCOUNTER 2018-08-23 20:58 | Emergency (ER) | payer OTHER ==
[~2018-08-23] VITALS: Ht 157.5 cm; Wt 79.8 kg
[2018-08-23 21:44] LABS: ABSOLUTE NEUTROPHILS 4.4 thou/uL (1.4-8.2); BASOPHILS 0.9 % (0.0-2.0); EOSINOPHILS 0.9 % (0.0-3.0); HEMATOCRIT 26.1 % (37.0-47.0); MCH 35.7 pg (26.0-34.0); MCHC 34.3 g/dL (28.0-37.0); MCV 104.2 fL (80.0-100.0); MONOCYTES 8.3 % (1.0-8.0); PLATELET COUNT 395 thou/uL (150-400); POLYS 47.9 % (36.0-66.0); RBC 2.51 mil/uL (4.20-5.00); RDW 16.5 % (10.5-14.5); WBC 9.2 thou/uL (4.0-11.0)
[2018-08-23 21:48] LABS: ABSOLUTE RETIC COUNT 0.0497 10^6/uL
[2018-08-23 21:52] LABS: CALCIUM 8.8 mg/dL (8.5-10.1); CREATININE 0.5 mg/dL (0.6-1.0); POTASSIUM 3.7 mmol/L (3.5-5.1)
[2018-08-23 23:03] LABS: URINE BILIRUBIN NEGATIVE (Negative); URINE BLOOD NEGATIVE (Negative); URINE CLARITY CLEAR; URINE COLOR YELLOW; URINE GLUCOSE-RANDOM* NEGATIVE (Negative); URINE KETONES NEGATIVE (Negative); URINE LEUKOCYTES-REFLEX NEGATIVE (Negative); URINE NITRITE-REFLEX NEGATIVE (Negative); URINE PROTEIN (DIPSTICK) NEGATIVE (Negative); URINE SPECIFIC GRAVITY 1.015 (1.005-1.035); URINE UROBILINOGEN 0.2 E.U./dl (0.2-1.0)
[2018-08-24] MEDS ORDERED: OXYCODONE HCL10 MG PO (00:47)
[2018-08-24 01:04] VITALS: BP 121/54
== END 2018-08-24 01:17 | disposition home or self-care (01) ==
LOC: ER 20:58
PROVIDERS: Emergency Medicine
DX: D57.00 Hb-SS disease with crisis, unspecified (principal); J45.909 Unspecified asthma, uncomplicated; F17.210 Nicotine dependence, cigarettes, uncomplicated; Z79.899 Other long term (current) drug therapy

== ENCOUNTER 2018-09-03 11:41 | Emergency (ER) | payer OTHER ==
[~2018-09-03] VITALS: Ht 157.5 cm; Wt 79.8 kg
[2018-09-03 14:08] LABS: HEMATOCRIT 26.7 % (37.0-47.0); HEMOGLOBIN 9.1 gm/dL (12.0-15.0); MCH 35.7 pg (26.0-34.0); MCHC 34.1 g/dL (28.0-37.0); MCV 104.6 fL (80.0-100.0); PLATELET COUNT 297 thou/uL (150-400); RBC 2.55 mil/uL (4.20-5.00); RDW 17.7 % (10.5-14.5)
[2018-09-03 14:11] LABS: URINE BILIRUBIN NEGATIVE (Negative); URINE BLOOD NEGATIVE (Negative); URINE CLARITY CLEAR; URINE COLOR YELLOW; URINE GLUCOSE-RANDOM* NEGATIVE (Negative); URINE KETONES NEGATIVE (Negative); URINE LEUKOCYTES-REFLEX NEGATIVE (Negative); URINE NITRITE-REFLEX NEGATIVE (Negative); URINE PROTEIN (DIPSTICK) NEGATIVE (Negative); URINE SPECIFIC GRAVITY <= 1.005 (1.005-1.035)
[2018-09-03 14:11] LABS: ABSOLUTE RETIC COUNT 0.1267 10^6/uL; OBSERVED RETIC COUNT 4.97 % (0.6-2.6)
[2018-09-03 14:14] LABS: CALCIUM 8.8 mg/dL (8.5-10.1); CREATININE 0.6 mg/dL (0.6-1.0)
[2018-09-03 14:21] LABS: ALBUMIN 3.8 g/dL (3.4-5.0); TOTAL BILIRUBIN 2.2 mg/dL (<0.1-1.0); TOTAL PROTEIN 7.6 g/dL (6.4-8.2)
[2018-09-03 14:33] LABS: ABSOLUTE NEUTROPHILS 5.6 thou/uL (1.4-8.2); ANISOCYTOSIS 1+; MACROCYTES 1+; NUCLEATED RBCS 3 /100WBC
[2018-09-03 14:34] LABS: HYPOCHROMASIA 1+; POLYCHROMASIA OCCASIONAL
[2018-09-03 15:30] VITALS: BP 144/84
== END 2018-09-03 15:30 | disposition home or self-care (01) ==
LOC: ER 11:41
PROVIDERS: Emergency Medicine
DX: D57.00 Hb-SS disease with crisis, unspecified (principal); J45.909 Unspecified asthma, uncomplicated; F17.210 Nicotine dependence, cigarettes, uncomplicated; Z90.49 Acquired absence of other specified parts of digestive tract; Z98.890 Other specified postprocedural states

== ENCOUNTER 2018-09-30 05:08 | Emergency (ER) | payer OTHER ==
[~2018-09-30] VITALS: Ht 157.5 cm; Wt 81.2 kg
[2018-09-30 07:32] LABS: AMP/METHAMP Negative (Negative); BARBITURATES Negative (Negative); BENZODIAZEPINES Negative (Negative); COCAINE Negative (Negative); METHADONE Negative (Negative); OPIATES POSITIVE (Negative); PCP Negative (Negative)
[2018-09-30 09:23] VITALS: BP 108/73
== END 2018-09-30 09:31 | disposition home or self-care (01) ==
LOC: ER 05:08
PROVIDERS: Emergency Medicine
DX: D57.00 Hb-SS disease with crisis, unspecified (principal); J45.909 Unspecified asthma, uncomplicated; Z90.49 Acquired absence of other specified parts of digestive tract; Z98.890 Other specified postprocedural states

== ENCOUNTER 2018-11-12 16:16 | Emergency (ER) | payer OTHER ==
[~2018-11-12] VITALS: Ht 167.6 cm; Wt 64.7 kg
[~2018-11-12 16:16] MED LIST changes: +PERCOCET 10-321 EACH PO
[2018-11-12 18:18] LABS: HEMATOCRIT 25.3 % (37.0-47.0); HEMOGLOBIN 8.9 gm/dL (12.0-15.0); MCH 34.9 pg (26.0-34.0); MCHC 35.2 g/dL (28.0-37.0); MCV 99.1 fL (80.0-100.0); OBSERVED RETIC COUNT 4.11 % (0.6-2.6); PLATELET COUNT 434 thou/uL (150-400); RBC 2.56 mil/uL (4.20-5.00); RDW 17.9 % (10.5-14.5); WBC 7.7 thou/uL (4.0-11.0)
[2018-11-12 18:41] LABS: ABSOLUTE NEUTROPHILS 4.8 thou/uL (1.4-8.2); ANISOCYTOSIS 1+; POLYCHROMASIA SLIGHT; TARGET CELLS FEW
[2018-11-12 21:30] VITALS: BP 125/70
== END 2018-11-12 22:01 | disposition home or self-care (01) ==
LOC: ER 16:16
PROVIDERS: Emergency Medicine
DX: D57.219 Sickle-cell/Hb-C disease with crisis, unspecified (principal); F17.210 Nicotine dependence, cigarettes, uncomplicated; J45.909 Unspecified asthma, uncomplicated; Z98.890 Other specified postprocedural states; Z90.49 Acquired absence of other specified parts of digestive tract

== ENCOUNTER 2018-12-28 17:21 | Emergency (ER) | payer OTHER ==
[~2018-12-28] VITALS: Ht 157.5 cm; Wt 79.8 kg
[2018-12-28 19:37] LABS: ABSOLUTE NEUTROPHILS 4.2 thou/uL (1.4-8.2)
[2018-12-28 19:43] LABS: ABSOLUTE RETIC COUNT 0.1389 10^6/uL; OBSERVED RETIC COUNT 5.92 % (0.6-2.6)
[2018-12-28 19:45] LABS: CALCIUM 6.9 mg/dL (8.5-10.1); CREATININE 0.5 mg/dL (0.6-1.0)
[2018-12-28 19:47] LABS: BASOPHILS 0.8 % (0.0-2.0); HEMATOCRIT 23.2 % (37.0-47.0); HEMOGLOBIN 7.8 gm/dL (12.0-15.0); LYMPHOCYTES 47.1 % (24.0-44.0); MCH 32.4 pg (26.0-34.0); MCHC 33.7 g/dL (28.0-37.0); MCV 96.1 fL (80.0-100.0); MONOCYTES 9.5 % (1.0-8.0); PLATELET COUNT 435 thou/uL (150-400); POLYS 41.6 % (36.0-66.0); RBC 2.41 mil/uL (4.20-5.00); RDW 17.7 % (10.5-14.5); WBC 10.2 thou/uL (4.0-11.0)
[2018-12-28 19:50] LABS: ALBUMIN 3.1 g/dL (3.4-5.0); TOTAL BILIRUBIN 2.4 mg/dL (<0.1-1.0); TOTAL PROTEIN 6.1 g/dL (6.4-8.2)
[2018-12-28] MEDS ORDERED: ONDANSETRON HCL4 M2 PO (20:38)
[2018-12-28] MEDS ORDERED: PERCOCET 5-3251 EACH PO (20:42)
[2018-12-28 21:11] VITALS: BP 144/80
== END 2018-12-28 22:00 | disposition home or self-care (01) ==
LOC: ER 17:21
PROVIDERS: Emergency Medicine
DX: D57.00 Hb-SS disease with crisis, unspecified (principal); F17.210 Nicotine dependence, cigarettes, uncomplicated; J45.909 Unspecified asthma, uncomplicated; Z90.49 Acquired absence of other specified parts of digestive tract; Z98.890 Other specified postprocedural states

== ENCOUNTER 2019-02-17 17:21 | Emergency (ER) | payer OTHER ==
[~2019-02-17] VITALS: Ht 162.6 cm; Wt 79.4 kg
[~2019-02-17 17:21] MED LIST changes: +ONDANSETRON HCL4 M2 PO; +PERCOCET 5-3251 EACH PO
[2019-02-17 22:59] VITALS: BP 125/56
== END 2019-02-17 23:29 | disposition home or self-care (01) ==
LOC: ER 17:21
DX: D57.1 Sickle-cell disease without crisis (principal); G89.29 Other chronic pain; J45.909 Unspecified asthma, uncomplicated; F17.210 Nicotine dependence, cigarettes, uncomplicated; Z98.890 Other specified postprocedural states; Z90.49 Acquired absence of other specified parts of digestive tract